=== PATIENT | male | born 1985 | race Caucasian/White ===

== ENCOUNTER 2022-06-11 13:37 | Inpatient (IN) | payer BC ==
[~2022-06-11] VITALS: Ht 152.4 cm; Wt 72.6 kg
[2022-06-11] MEDS ORDERED: IPRATROPIUM/ALBUTEROL SULFATE 3 ML SOLUTION IH ONE (13:41)
[2022-06-11 14:03] LABS: BASOPHILS % (AUTO) 0.2 % (0.0-5.0); EOSINOPHILS % (AUTO) 0.7 % (0.0-8.0); HEMATOCRIT 33.1 % (42-54); LYMPHOCYTES % (AUTO) 7.7 % (21.0-51.0); MEAN CORPUSCULAR HEMOGLOBIN 29.5 pg (27.0-33.0); MEAN CORPUSCULAR HGB CONC 32.9 g/dL (32.0-36.0); MEAN CORPUSCULAR VOLUME 89.7 fL (79-99); MONOCYTES % (AUTO) 9.8 % (3.0-13.0); NEUTROPHILS % (AUTO) 81.1 % (40.0-77.0); PLATELET COUNT (AUTO) 410 K/uL (130-400); RED BLOOD CELL COUNT(AUTO) 3.69 MIL/uL (4.50-6.20); RED CELL DISTRIBUTION WIDTH 11.9 % (11.0-15.5); WHITE BLOOD COUNT (AUTO) 13.3 K/uL (4.8-10.8)
[2022-06-11 14:17] LABS: ALBUMIN 2.6 g/dL (3.5-5.0); CREATININE 0.9 mg/dL (0.5-1.5); POTASSIUM 5.3 mmol/L (3.5-5.1); TOTAL PROTEIN, SERUM 7.8 g/dL (6.0-8.3)
[2022-06-11] MEDS ORDERED: AZITHROMYCIN 500MG+NS 250ML IVPB STA (15:56)
[2022-06-11] MEDS ORDERED: CEFTRIAXONE 1G VIAL IVP ONE (16:00)
[2022-06-11] MEDS ORDERED: IPRATROPIUM 0.5 MG/2.5 ML INH IH PRN (18:00)
[2022-06-11 18:14] LABS: ABG BASE EXCESS 7.1 mmol/L (-2.0-3.0); ABG HCO3 34.3 mmol/L (21.0-28.0); ABG OXYGEN SATURATION 95.5 % (95.0-99.0); ABG PCO2 59 mmHg (35-48)
[2022-06-11] MEDS: ALBUTEROL 0.083% 2.5 MG/3 ML INH IH SCH ×2 (18:18→21:23)
[2022-06-11] MEDS ORDERED: PHARMACY COMMUNICATION MISC SCH (21:00)
[2022-06-11] MEDS ORDERED: VANCOMYCIN 1G 4 GM, 0.9%NACL 20 ML VIAL 80 ML PO SCH ×2 (21:00)
[2022-06-11] MEDS ORDERED: COMPOUND PO MISCELLANEOUS 1 EACH MISC MISC PRN (21:00)
[2022-06-11] MEDS ORDERED: LEVETIRACETAM 100 MG/ML 5 ML UDCUP PO SCH (21:21)
[2022-06-11] MEDS: METRONIDAZOLE 500MG/100ML BAG 100 ML IVPB SCH (21:37)
[2022-06-11] MEDS: 0.9%NACL 1000ML 1,000 ML IV SCH (21:37)
[2022-06-11] MEDS ORDERED: OMEP10SU2 PEG (22:22)
[2022-06-11] MEDS ORDERED: LACT10SO5 PEG (22:22)
[2022-06-11] MEDS ORDERED: METO25TA6 PEG (22:22)
[2022-06-11] MEDS ORDERED: [UNRECOGNIZED DRUG - OTHER] PEG (22:22)
[2022-06-11] MEDS ORDERED: AMIT10TA6 PO (22:22)
[2022-06-11] MEDS ORDERED: GABA250S PO (22:22)
[2022-06-11] MEDS ORDERED: CARBAMAZEPINE PEG (22:22)
[2022-06-11] MEDS ORDERED: DILT30TA3 PEG (22:22)
[2022-06-11] MEDS ORDERED: MIRALAX PEG (22:22)
[2022-06-11] MEDS ORDERED: [UNRECOGNIZED DRUG - CODE] IJ (22:22)
[2022-06-11] MEDS ORDERED: CETI-89 PEG (22:22)
[2022-06-11] MEDS ORDERED: LISI10TA24 PEG (22:22)
[2022-06-11] MEDS ORDERED: LEVE500S7 PO (22:22)
[2022-06-11] MEDS ORDERED: MULTIVITAMIN PEG (22:28)
[2022-06-11] MEDS ORDERED: LACT460C PO (22:28)
[2022-06-11] MEDS ORDERED: VITAMIN D PEG (22:28)
[2022-06-11] MEDS ORDERED: BENEFIBER PEG (22:28)
[2022-06-11] MEDS ORDERED: BACL10TA PEG (22:34)
[2022-06-11] MEDS ORDERED: ASCO100031 PEG (22:34)
[2022-06-11 23:27] VITALS: BP 121/73
[2022-06-12] MEDS ORDERED: ZOSYN 3.375GM+NS 50ML 50 ML IV SCH
[2022-06-12] MEDS ORDERED: PHARMACY COMMUNICATION MISC SCH (00:30)
[2022-06-12] MEDS: INSULIN HUMULIN R 100 UNIT/ML 3ML SQ SCH ×4 (00:30→18:00)
[2022-06-12] MEDS ORDERED: GLUCAGON 1MG KIT 1 MG ML IM PRN (00:30)
[2022-06-12] MEDS ORDERED: DEXTROSE 50%-WATER 50 ML DISP.SYRIN IV PRN (00:30)
[2022-06-12] MEDS: ZOSYN 3.375GM +NS 50ML IV SCH ×3 (00:40→17:21)
[2022-06-12] MEDS ORDERED: VANCOMYCIN 1G 4 GM, 0.9%NACL 20 ML VIAL 80 ML PO SCH ×2 (01:00)
[2022-06-12] MEDS ORDERED: COMPOUND PO MISCELLANEOUS 1 EACH MISC MISC PRN (01:00)
[2022-06-12] MEDS: VANCOMYCIN 250MG/5ML ORAL SOLUTION 40ML PO SCH ×8 (01:00→18:42)
[2022-06-12] MEDS: ALBUTEROL 0.083% 2.5 MG/3 ML INH IH SCH ×6 (02:07→22:56)
[2022-06-12 03:34] VITALS: BP 116/64
[2022-06-12 04:30] LABS: BASOPHILS % (AUTO) 0.1 % (0.0-5.0); EOSINOPHILS % (AUTO) 0.6 % (0.0-8.0); HEMATOCRIT 28.3 % (42-54); LYMPHOCYTES % (AUTO) 11.5 % (21.0-51.0); MEAN CORPUSCULAR HEMOGLOBIN 29.5 pg (27.0-33.0); MEAN CORPUSCULAR HGB CONC 32.9 g/dL (32.0-36.0); MEAN CORPUSCULAR VOLUME 89.8 fL (79-99); MONOCYTES % (AUTO) 9.6 % (3.0-13.0); NEUTROPHILS % (AUTO) 77.7 % (40.0-77.0); PLATELET COUNT (AUTO) 388 K/uL (130-400); RED BLOOD CELL COUNT(AUTO) 3.15 MIL/uL (4.50-6.20); RED CELL DISTRIBUTION WIDTH 12.1 % (11.0-15.5); WHITE BLOOD COUNT (AUTO) 14.2 K/uL (4.8-10.8)
[2022-06-12 04:52] LABS: CREATININE 0.8 mg/dL (0.5-1.5); POTASSIUM 5.2 mmol/L (3.5-5.1)
[2022-06-12] MEDS: METRONIDAZOLE 500MG/100ML BAG 100 ML IVPB SCH ×3 (05:18→22:00)
[2022-06-12] MEDS ORDERED: LEVOFLOXACIN 500 MG/D5W 100 ML 100 ML IV SCH (06:00)
[2022-06-12] MEDS: FAMOTIDINE 20MG VIAL IV SCH ×2 (10:17→21:00)
[2022-06-12] MEDS: ENOXAPARIN SODIUM 40 MG/0.4 ML SYRINGE SQ SCH (10:19)
[2022-06-12] MEDS ORDERED: COMPOUND IV MISC 1 EACH IVSOLN MISC PRN (11:00)
[2022-06-12] MEDS: LEVETIRACETAM 1,000 MG in 0.9%NACL 100ML 100 ML IV SCH ×2 (12:25→20:55)
[2022-06-12 13:10] VITALS: BP 135/74
[2022-06-12] MEDS ORDERED: BACL10TA PO (13:38)
[2022-06-12] MEDS ORDERED: LEVE500L PO (13:38)
[2022-06-12] MEDS ORDERED: DIAZ10TA4 PO (13:38)
[2022-06-12] MEDS ORDERED: MELO-108 PO (13:38)
[2022-06-12 14:19] LABS: INR 1.05 (0.85-1.15); PROTHROMBIN TIME 11.4 SEC (9.6-11.6)
[2022-06-12 16:00] VITALS: BP 122/71
[2022-06-12] MEDS ORDERED: ACETAMINOPHEN 650 MG SUPPOSITORY RC PRN (17:00)
[2022-06-12] MEDS ORDERED: DIAZEPAM 5 MG TABLET PO PRN (17:00)
[2022-06-12] MEDS ORDERED: ACETAMINOPHEN 650 MG/20.3 ML UDCUP PEG ONE (17:00)
[2022-06-12] MEDS: 0.9%NACL 1000ML 1,000 ML IV SCH (17:23)
[2022-06-12 19:19] VITALS: BP 130/78
[2022-06-12 22:57] LABS: CREATININE 0.6 mg/dL (0.5-1.5); POTASSIUM 4.3 mmol/L (3.5-5.1)
[2022-06-12 23:00] LABS: MAGNESIUM 2.5 mg/dL (1.80-2.40); PHOSPHORUS 5.2 mg/dL (2.5-4.9)
[2022-06-12] MEDS: CARBAMAZEPINE 200 MG TABLET PO SCH (23:00)
[2022-06-13] VITALS (7 sets, daily range): BP systolic 122–144; BP diastolic 70–89
[2022-06-13 00:38] LABS: ABG BASE EXCESS 7.4 mmol/L (-2.0-3.0); ABG HCO3 34.5 mmol/L (21.0-28.0); ABG OXYGEN SATURATION 93.1 % (95.0-99.0); ABG PCO2 58 mmHg (35-48)
[2022-06-13] MEDS: ZOSYN 3.375GM +NS 50ML IV SCH ×3 (01:45→17:05)
[2022-06-13] MEDS: VANCOMYCIN 250MG/5ML ORAL SOLUTION 40ML PO SCH ×6 (01:45→15:52)
[2022-06-13] MEDS: ALBUTEROL 0.083% 2.5 MG/3 ML INH IH SCH ×6 (02:21→22:41)
[2022-06-13 03:32] LABS: BASOPHILS % (AUTO) 0.2 % (0.0-5.0); EOSINOPHILS % (AUTO) 0.3 % (0.0-8.0); HEMATOCRIT 29.6 % (42-54); LYMPHOCYTES % (AUTO) 13.3 % (21.0-51.0); MEAN CORPUSCULAR HEMOGLOBIN 29.5 pg (27.0-33.0); MEAN CORPUSCULAR HGB CONC 31.8 g/dL (32.0-36.0); MEAN CORPUSCULAR VOLUME 92.8 fL (79-99); MONOCYTES % (AUTO) 11.5 % (3.0-13.0); NEUTROPHILS % (AUTO) 74.2 % (40.0-77.0); PLATELET COUNT (AUTO) 404 K/uL (130-400); RED BLOOD CELL COUNT(AUTO) 3.19 MIL/uL (4.50-6.20); RED CELL DISTRIBUTION WIDTH 12.2 % (11.0-15.5); WHITE BLOOD COUNT (AUTO) 10.4 K/uL (4.8-10.8)
[2022-06-13 03:57] LABS: CREATININE 0.5 mg/dL (0.5-1.5); POTASSIUM 3.6 mmol/L (3.5-5.1); THYROID STIMULATING HORMONE 1.21 uIU/mL (0.36-3.74)
[2022-06-13 04:10] LABS: CRP QUANTITATIVE 190.9 mg/L (0.00-9.0)
[2022-06-13] MEDS: INSULIN HUMULIN R 100 UNIT/ML 3ML SQ SCH ×4 (06:00→18:00)
[2022-06-13] MEDS: METRONIDAZOLE 500MG/100ML BAG 100 ML IVPB SCH ×3 (06:21→21:11)
[2022-06-13] MEDS: BACLOFEN 10 MG TABLET PO SCH ×5 (06:57→22:57)
[2022-06-13] MEDS: LACTOBACILLUS RHAMNOSUS GG 1 EACH CAP.SPRINK PO SCH (08:00)
[2022-06-13] MEDS: ENOXAPARIN SODIUM 40 MG/0.4 ML SYRINGE SQ SCH (09:00)
[2022-06-13] MEDS: METOPROLOL TARTRATE 25 MG TAB PEG SCH (09:00)
[2022-06-13] MEDS: GABAPENTIN 250 MG PO SCH ×3 (09:00→21:00)
[2022-06-13] MEDS: AMITRIPTYLINE 10MG TAB PO SCH (09:00)
[2022-06-13] MEDS: DILTIAZEM 60MG TAB PO SCH ×4 (09:00→21:00)
[2022-06-13] MEDS: LISINOPRIL 10 MG TABLET PEG SCH (09:00)
[2022-06-13] MEDS: CARBAMAZEPINE 200 MG TABLET PO SCH ×2 (09:00→21:00)
[2022-06-13] MEDS: LEVETIRACETAM 1,000 MG in 0.9%NACL 100ML 100 ML IV SCH ×2 (09:00→21:00)
[2022-06-13] MEDS: FAMOTIDINE 20MG VIAL IV SCH ×2 (09:24→21:00)
[2022-06-13] MEDS: 0.9%NACL 1000ML 1,000 ML IV SCH (17:05)
[2022-06-14] MEDS: ALBUTEROL 0.083% 2.5 MG/3 ML INH IH SCH ×6 (01:47→22:01)
[2022-06-14] MEDS: BACLOFEN 10 MG TABLET PO SCH ×6 (02:57→22:57)
[2022-06-14 03:41] LABS: BASOPHILS % (AUTO) 0.3 % (0.0-5.0); EOSINOPHILS % (AUTO) 2.6 % (0.0-8.0); HEMATOCRIT 29.7 % (42-54); LYMPHOCYTES % (AUTO) 18.7 % (21.0-51.0); MEAN CORPUSCULAR HEMOGLOBIN 29.9 pg (27.0-33.0); MEAN CORPUSCULAR HGB CONC 32.3 g/dL (32.0-36.0); MEAN CORPUSCULAR VOLUME 92.5 fL (79-99); MONOCYTES % (AUTO) 10.8 % (3.0-13.0); PLATELET COUNT (AUTO) 440 K/uL (130-400); RED BLOOD CELL COUNT(AUTO) 3.21 MIL/uL (4.50-6.20); RED CELL DISTRIBUTION WIDTH 12.2 % (11.0-15.5); WHITE BLOOD COUNT (AUTO) 11.9 K/uL (4.8-10.8)
[2022-06-14 04:00] VITALS: BP 131/76
[2022-06-14 04:01] LABS: CREATININE 0.4 mg/dL (0.5-1.5); POTASSIUM 3.2 mmol/L (3.5-5.1)
[2022-06-14] MEDS: ZOSYN 3.375GM +NS 50ML IV SCH ×3 (04:54→16:30)
[2022-06-14] MEDS: VANCOMYCIN 250MG/5ML ORAL SOLUTION 40ML PO SCH ×10 (04:55→18:53)
[2022-06-14] MEDS: INSULIN HUMULIN R 100 UNIT/ML 3ML SQ SCH ×4 (06:00→16:26)
[2022-06-14] MEDS: METRONIDAZOLE 500MG/100ML BAG 100 ML IVPB SCH (07:28)
[2022-06-14] MEDS: LACTOBACILLUS RHAMNOSUS GG 1 EACH CAP.SPRINK PO SCH (08:00)
[2022-06-14 08:01] VITALS: BP 159/87
[2022-06-14] MEDS: LEVETIRACETAM 1,000 MG in 0.9%NACL 100ML 100 ML IV SCH (09:00)
[2022-06-14] MEDS: LISINOPRIL 10 MG TABLET PEG SCH (09:00)
[2022-06-14] MEDS: GABAPENTIN 250 MG PO SCH ×3 (09:00→21:00)
[2022-06-14] MEDS: CARBAMAZEPINE 200 MG TABLET PO SCH ×2 (09:00→21:00)
[2022-06-14] MEDS: METOPROLOL TARTRATE 25 MG TAB PEG SCH (09:00)
[2022-06-14] MEDS: DILTIAZEM 60MG TAB PO SCH ×4 (09:00→21:00)
[2022-06-14] MEDS: AMITRIPTYLINE 10MG TAB PO SCH (09:00)
[2022-06-14] MEDS: ENOXAPARIN SODIUM 40 MG/0.4 ML SYRINGE SQ SCH (10:18)
[2022-06-14] MEDS: FAMOTIDINE 20MG VIAL IV SCH ×2 (10:19→20:56)
[2022-06-14 10:32] LABS: APPEARANCE,URINE CLEAR (CLEAR); BILIRUBIN,URINE NEGATIVE (NEGATIVE); COLOR,URINE LIGHT-YELLOW (YELLOW); GLUCOSE, URINE (UA) 30 mg/dL (NEGATIVE); KETONES,URINE NEGATIVE (NEGATIVE); LEUKOCYTE ESTERASE ,URINE NEGATIVE Leu/uL (NEGATIVE); NITRATE,URINE NEGATIVE (NEGATIVE); OCCULT BLOOD,URINE LARGE (NEGATIVE); PROTEIN,URINE 300 mg/dL (NEGATIVE); UROBILINOGEN,URINE 0.2 mg/dL (0.2-1.0)
[2022-06-14 10:38] LABS: MUCUS,URINE RARE LPF (None Seen); RBC,URINE TNTC /HPF (0-1)
[2022-06-14 11:11] VITALS: BP 162/89
[2022-06-14] MEDS ORDERED: POTASSIUM CHLORIDE 20MEQ/100ML 100 ML IV PRN (13:00)
[2022-06-14] MEDS ORDERED: LIDOCAINE HCL-MPF 1% 2ML VIAL IV PRN (13:00)
[2022-06-14] MEDS ORDERED: KCL 20 MEQ ERTAB PO PRN (13:00)
[2022-06-14] MEDS: POTASSIUM CHLORIDE 10% ELIXIR 20 MEQ/15 ML UDCUP PO PRN ×3 (13:26→18:53)
[2022-06-14 16:17] VITALS: BP 163/75
[2022-06-14] MEDS ORDERED: ACETAMINOPHEN 650 MG/20.3 ML UDCUP ONE (16:51)
[2022-06-14] MEDS ORDERED: ACETAMINOPHEN 650 MG/20.3 ML UDCUP PEG PRN (17:00)
[2022-06-14 20:01] VITALS: BP 123/80
[2022-06-14] MEDS: LEVETIRACETAM 500 MG TABLET PO SCH (21:00)
[2022-06-14 23:42] VITALS: BP 137/81
[2022-06-15] MEDS: ZOSYN 3.375GM +NS 50ML IV SCH ×3 (00:48→16:26)
[2022-06-15] MEDS: VANCOMYCIN 250MG/5ML ORAL SOLUTION 40ML PO SCH ×6 (00:48→13:00)
[2022-06-15] MEDS: ALBUTEROL 0.083% 2.5 MG/3 ML INH IH SCH ×5 (02:06→19:36)
[2022-06-15] MEDS: BACLOFEN 10 MG TABLET PO SCH ×5 (02:23→18:57)
[2022-06-15 04:04] VITALS: BP 117/68
[2022-06-15] MEDS: INSULIN HUMULIN R 100 UNIT/ML 3ML SQ SCH ×4 (06:00→18:00)
[2022-06-15 07:59] VITALS: BP 124/75
[2022-06-15] MEDS: LACTOBACILLUS RHAMNOSUS GG 1 EACH CAP.SPRINK PO SCH ×2 (08:00→09:03)
[2022-06-15] MEDS: METOPROLOL TARTRATE 25 MG TAB PEG SCH ×2 (09:00→09:04)
[2022-06-15] MEDS: AMITRIPTYLINE 10MG TAB PO SCH (09:00)
[2022-06-15] MEDS: GABAPENTIN 250 MG PO SCH ×2 (09:00→14:00)
[2022-06-15] MEDS: LEVETIRACETAM 500 MG TABLET PO SCH ×2 (09:00→09:03)
[2022-06-15] MEDS: CARBAMAZEPINE 200 MG TABLET PO SCH ×2 (09:00→09:05)
[2022-06-15] MEDS: LISINOPRIL 10 MG TABLET PEG SCH ×2 (09:00→09:05)
[2022-06-15] MEDS: POTASSIUM CHLORIDE 10% ELIXIR 20 MEQ/15 ML UDCUP PO PRN (09:04)
[2022-06-15] MEDS: DILTIAZEM 60MG TAB PO SCH ×3 (09:05→16:35)
[2022-06-15] MEDS: ENOXAPARIN SODIUM 40 MG/0.4 ML SYRINGE SQ SCH (09:06)
[2022-06-15] MEDS: FAMOTIDINE 20MG VIAL IV SCH (09:07)
[2022-06-15 11:46] VITALS: BP 128/82
[2022-06-15 16:00] VITALS: BP 142/84
[2022-06-15] MEDS ORDERED: METR-172 PO (16:36)
[2022-06-15] MEDS ORDERED: VANC250C6 PEG (16:36)
== END 2022-06-15 21:00 | disposition home or self-care (01) | DRG 853 ==
LOC: EDH 13:37 → EDHIP 16:17 → 2DH 23:01
PROVIDERS: ADMIT Internal Medicine; ATTEND Internal Medicine
PROC: 5A1945Z Respiratory Ventilation, 24-96 Consecutive Hours (ICD-10-PCS; 2022-06-11)
PROC: 00BX3ZX Excision of Thoracic Spinal Cord, Percutaneous Approach, Diagnostic (ICD-10-PCS; principal; 2022-06-14)
DX: A41.9 Sepsis, unspecified organism (principal); J69.0 Pneumonitis due to inhalation of food and vomit; J96.21 Acute and chronic respiratory failure with hypoxia; J96.22 Acute and chronic respiratory failure with hypercapnia; E87.1 Hypo-osmolality and hyponatremia; E46 Unspecified protein-calorie malnutrition; A04.72 Enterocolitis due to Clostridium difficile, not specified as recurrent; J95.851 Ventilator associated pneumonia; Z99.11 Dependence on respirator [ventilator] status; Z20.822 Contact with and (suspected) exposure to COVID-19; E87.6 Hypokalemia; G80.9 Cerebral palsy, unspecified; C80.1 Malignant (primary) neoplasm, unspecified; E66.9 Obesity, unspecified; E87.8 Other disorders of electrolyte and fluid balance, not elsewhere classified; G40.909 Epilepsy, unspecified, not intractable, without status epilepticus; I10 Essential (primary) hypertension; Y84.8 Other medical procedures as the cause of abnormal reaction of the patient, or of later complication, without mention of misadventure at the time of the procedure; Z93.0 Tracheostomy status; Z74.01 Bed confinement status; Z87.01 Personal history of pneumonia (recurrent); Z93.1 Gastrostomy status
CPT/HCPCS: 36415; 36600; 71045; 74018; 74176; 77012; 80048; 80053; 81001; 82533; 82803; 82948; 83735; 83880; 83930; 83935; 84100; 84145; 84300; 84443; 85025; 85610; 85651; 86140; 86738; 87046; 87071; 87077; 87088; 87186; 87205; 87324; 87449; 87635; 87804; 93306; 93970; 94640; 94664; 94760; A4606; C1894; C9803; G0378; J0456; J0696; J1650; J1953; J2543; J3370; J3490; J7030; J7070